=== PATIENT | female | born 1995 | race Caucasian/White ===

== ENCOUNTER 2019-05-14 18:45 | Emergency (ER) | payer BC ==
[2019-05-14 18:54] VITALS: BP 131/76
[2019-05-14] MEDS ORDERED: Meclizine TAB* 12.5 MG PO ONE (18:59)
--- NOTE | 2019-05-14 19:00 | UC ---
Dizzy HPI HPI Summary: 24 yo female presents with dizziness. She tells me that this morning around 0830 she was sleeping and heard the phone ring. She quickly sprang up from a lying position and answered her phone - felt dizzy immediately. Since that time has felt dizzy like the room is spinning. She has felt fine yesterday. Denies recent illness, fever, chills, SOB, chest pain, abdominal pain, n/v/d/c, dysuria. LMP was 1 week ago. Nothing OTC for symptoms. Symptoms are worse with turning her head. Better with rest and staring straight ahead. - History Of Current Complaint Chief Complaint: UCDizziness Stated Complaint: DIZZY LIGHT HEADED Time Seen by Provider: 05/14/19 18:59 Hx Obtained From: Patient Hx Last Menstrual Period: 05/04/19 Onset/Duration: Sudden Onset Severity Currently: None Pain Intensity: 0 - Allergies/Home Medications Allergies/Adverse Reactions: Allergies Allergy/AdvReac Type Severity Reaction Status Date / Time mold Allergy Congestion Verified 05/14/19 18:54 Home Medications: Home Medications Bonine 2 tab PO ONCE PRN 05/14/19 [History] PMH/Surg Hx/FS Hx/Imm Hx - Additional Past Medical History Additional PMH: None - Surgical History Surgical History: None - Family History Known Family History: Positive: None - Social History Occupation: Employed Full-time Lives: With Family Alcohol Use: Rare Substance Use Type: None Smoking Status (MU): Never Smoked Tobacco Review of Systems All Other Systems Reviewed And Are Negative: No Constitutional: Positive: Negative Skin: Positive: Negative Eyes: Positive: Negative ENT: Positive: Negative Respiratory: Positive: Negative Cardiovascular: Positive: Negative Gastrointestinal: Positive: Negative Motor: Positive: Negative Neurovascular: Positive: Negative Musculoskeletal: Positive: Negative Neurological/Mental Status: Positive: Other - Dizziness Psychological: Positive: Negative Physical Exam - Summary Physical Exam Summary: GENERAL: NAD. WDWN. No pain distress. SKIN: No rashes, sores, ulcers, masses, lesions. HEENT: Head: AT/NC. Eyes: PERRLA. EOM intact. Conjunctiva clear without inflammation or discharge. HORIZONTAL NYSTAGMUS with turning head Ears: Hearing grossly normal. TMs intact, no bulging, erythema, or edema. Nose: Nasal mucosa pink and moist. NTTP maxillary and frontal sinus. Throat: Posterior oropharynx without exudates, erythema, or tonsillar enlargement. Uvula midline. NECK: Supple. Nontender. FROM CHEST: CTAB. No r/r/w. No accessory muscle use. Breathing comfortably and in no distress. CV: RRR. Pulses intact. Brisk cap refill. ABDOMEN: Soft. NTTP. Bowel sounds present MSK: FROM in B/L UEs and LEs with symmetric strength. NEURO: A&Ox3. CN: II: Peripheral zamora intact. Vision normal. III, IV, : EOMI. PERRLA. V: Sensations intact and symmetric. Opens mouth and clenches teeth. VII: No facial asymmetry. Forehead wrinkles. Grins, shuts eyes, frowns, puffs cheeks. VIII: Hearing intact to finger rub. IX, X: Swallows and coughs. Uvula midline. XI: Shrugs shoulders. Turns head against resistance. XII: No tongue deviation [id number] are intact. Gait with normal base. Romberg: maintains balance, no pronator drift. Normal speech. No facial drooping. PSYCH: Age appropriate behavior. Triage Information Reviewed: Yes Vital Signs: Initial Vital Signs Temp 97.1 F 05/14/19 18:47 Pulse 72 05/14/19 18:47 Resp 16 05/14/19 18:47 BP 131/76 05/14/19 18:47 Pulse Ox 100 05/14/19 18:47 Vital Signs Reviewed: Yes Dizzy Course/Dx - Course Course Of Treatment: Suspect BPPV In the clinic pt was given meclizine and felt a little better. Will rx for meclizine and have her f/u with PT tomorrow for further treatment if symptoms persist - Differential Dx/Diagnosis Provider Diagnosis: BPPV (benign paroxysmal positional vertigo) Discharge ED - Sign-Out/Discharge Documenting (check all that apply): Patient Departure All imaging exams completed and their final reports reviewed: No Studies - Discharge Plan Condition: Stable Disposition: HOME Prescriptions: Meclizine HCl [Dramamine Less Drowsy] 25 mg PO TID #21 tablet Patient Education Materials: Vertigo (ED), Benign Paroxysmal Positional Vertigo (ED) Referrals: No Primary Care Phys,NOPCP [Primary Care Provider] - Additional Instructions: If you develop a fever, shortness of breath, chest pain, new or worsening symptoms - please call your PCP or go to the ED immediately. I recommend no work or driving until feeling better Please call Physical Therapy in the morning to see if Hiram Dunn can see you tomorrow - Billing Disposition and Condition Condition: STABLE Disposition: Home
== END 2019-05-14 19:43 | disposition home or self-care (01) ==
LOC: UCCORT 18:45
DX: H81.10 Benign paroxysmal vertigo, unspecified ear (principal); Z91.09 Other allergy status, other than to drugs and biological substances
CPT/HCPCS: 99202; A9270-GY; G0463